=== PATIENT | male | born 1985 | race Caucasian/White ===

== ENCOUNTER 2019-02-14 07:17 | Emergency (ER) | payer BC, SELFPAY ==
[2019-02-14 07:19] VITALS: BP 128/78; PULSE 75; RESP 17; TEMP 36.8; O2SAT 98; BMI 39.2
--- NOTE | 2019-02-14 07:33 | ED.VIS.GEN ---
History of Present Illness Chief Complaint: Abscess Informant: Patient Onset: Days - 5-6 Context: Gradual Onset Timing: Waxes and wanes Quality: sore Location: right groin, more in prox medial thigh Current Severity: Moderate Maximum Severity: Moderate Worsened by: palpation Relieved by: leaving alone Associated Symptoms: bloody d/c when poke it; no fevers/systemic sx Narrative: No known history of MRSA. No recent hospitalization or surgery. No recent injury or foreign body here, patient thinks it started as an ingrown hair in his groin. States last night his poked it with something sharp, it was very painful and he only had a little blood come out, no purulent material. Prior similar symptoms: No Recent Illness/Hospitalization: No Past Medical History - Allergies and Home Meds Allergies/Adverse Reactions: Allergies No Known Allergies Allergy (Verified 02/14/19 07:19) Primary Care Physician: Margo Balderrama MD [Primary Care Provider] - Past Medical History: None Lives: Spouse/ Significant Other Smoking Status: Never smoker Drugs: None Review of Systems General: Denies: Chills, Fever, Sweats Musculoskeletal: Reports: Extremity Pain - right thigh. Denies: Swelling Skin: Reports: Abscess. Denies: Rash Neurological: Denies: Weakness, Numbness Physical Exam Vital Signs/Narrative: Vital Signs Temp Pulse Resp BP Pulse Ox 02/14/19 07:19 98.3 F 75 17 128/78 H 98 Inital Vital Signs reviewed: Yes General: Well nourished, Well developed, No Acute Distress Head: Normocephalic, Atraumatic Skin: - - Small 1 cm abscess w/ ecchymosis, very tender, nothing easily expressible, right proximal medial thigh, does not involve inguinal area or scrotum. Although there is faint erythema in his right medial thigh, it is not indurated and not obvious that it represents cellulitis. Neurological: Alert, Oriented x3, Cranial nerves II-XII grossly intact, Normal Strength, Normal Sensation, Normal Gait Psychological: Normal affect, Normal Mood Diagnostic/Tx/Re-eval - Medical Decision Making Simple abscess was not large enough to pack. It was incised and drained and he will be placed on Bactrim to treat any residual infection. Follow-up as needed or return if worse. Procedures Procedure(s): Simple cutaneous abscess incision and drainage. Locally anesthetized with 4 cc plain 1% lidocaine with isopropanol prep, followed by chlorhexidine prep and incision at the center of abscess with #11 blade. Small amount of purulent material was expressed along with some blood. The small abscess collapsed. It was probed and deloculated, irrigated with 30 cc of saline under pressure, and dressed with bacitracin. Tolerated well, no complications. ED Disposition - Plan for ED Patient: Disposition: Home or Assisted Living Diagnosis: Cutaneous abscess of right lower extremity Instructions: ABSCESS, Incision and Drainage Prescriptions: Sulfamethoxazole/Trimethoprim [Bactrim Ds Tablet] 1 ea PO BID #14 tab Prescription Printed Referrals: Margo Balderrama MD [Primary Care Provider] - 1 Week if not improving
== END 2019-02-14 08:13 | disposition home or self-care (01) ==
PROVIDERS: Emergency Provider Emergency Medicine; Family Provider Family Medicine; PCP Family Medicine
DX: L02.415 Cutaneous abscess of right lower limb (principal)
CPT/HCPCS: 10060; 99282

== ENCOUNTER → 2019-04-25 17:27 | Outpatient (CLI) | payer BC, SELFPAY ==
[2019-04-25 17:48] LABS: Cholesterol 271 mg/dL (200); Glucose 81 mg/dL (74-106); High Density Lipoprotein 82 mg/dL; Triglycerides 98 mg/dL; Very Low Density Lipoprotein 20 mg/dL (5-40)
== END ==
PROVIDERS: PCP Family Medicine; Referring Provider Family Medicine; Visit Provider Family Medicine
DX: Z00.00 Encounter for general adult medical examination without abnormal findings (principal)
CPT/HCPCS: 36415; 80061; 82947

== ENCOUNTER 2021-06-12 07:53 | Outpatient (RCR) | payer BC, SELFPAY | END 2021-06-20 23:59 | LOC: NS 07:53 | PROVIDERS: PCP Family Medicine; Referring Provider Family Medicine; Visit Provider Family Medicine | DX: Z71.3 Dietary counseling and surveillance (principal); E66.01 Morbid (severe) obesity due to excess calories; Z68.41 Body mass index [BMI] 40.0-44.9, adult | CPT/HCPCS: 97802 ==

== ENCOUNTER 2021-07-01 16:11 | Outpatient (RCR) | payer BC, SELFPAY | END 2021-07-20 23:59 | LOC: NS 16:11 | PROVIDERS: PCP Family Medicine; Referring Provider Family Medicine; Visit Provider Family Medicine | DX: Z71.3 Dietary counseling and surveillance (principal); E66.01 Morbid (severe) obesity due to excess calories; Z68.41 Body mass index [BMI] 40.0-44.9, adult | CPT/HCPCS: 97803 ==

== ENCOUNTER 2021-07-22 16:21 | Outpatient (RCR) | payer BC, SELFPAY | END 2021-08-20 23:59 | LOC: NS 16:21 | PROVIDERS: PCP Family Medicine; Referring Provider Family Medicine; Visit Provider Family Medicine | DX: Z71.3 Dietary counseling and surveillance (principal); E66.01 Morbid (severe) obesity due to excess calories; Z68.41 Body mass index [BMI] 40.0-44.9, adult | CPT/HCPCS: 97803 ==

== ENCOUNTER 2021-09-16 17:52 | Emergency (ER) | payer BC, SELFPAY ==
[2021-09-16 17:54] VITALS: BP 123/99; PULSE 99; RESP 18; TEMP 36.7; O2SAT 96; BMI 36.9
[2021-09-16 18:16] VITALS: RESP 18
--- NOTE | 2021-09-16 18:46 | EX.ED.SAOD ---
HPI History of Present Illness Chief Complaint: Substance Abuse Informant: patient and family Narrative Narrative: Patient is brought in by sister. They are concerned with his drinking. He has been drinking the last 2 days. He drank a bottle of vodka today. He has no physical complaints. Not suicidal homicidal. He admits to some drinking problems. He has never gone through detox. However, this patient will go days at a time or even longer without drinking. He states he has never had withdrawal symptoms when he stops. His sister agrees with that. The concern is that when he gets stressed he will drink heavily. They just did not know what to do with this. PFSH PFS Home Medications buspirone 10 mg tablet 2 tab PO BID 09/16/21 [History Last Taken Unknown] Allergy/AdvReac Type Severity Reaction Status Date / Time No Known Allergies Allergy Verified 09/16/21 17:57 Social History Smoking Status: Never smoker ROS ROS ED Constitutional Constitutional ED: Denies chills, fever(s) or weight loss Eyes Eyes: Denies change in vision ENT ENT ED: Denies sore throat Cardiovascular Cardiovascular: Denies chest pain or palpitations Respiratory/Chest Respiratory/Chest: Denies cough or dyspnea Gastrointestinal Gastrointestinal: Denies abdominal pain, melena, nausea or vomiting Musculoskeletal Musculoskeletal: Denies arthralgias or myalgias Integumentary Denies rash Neurologic Neurologic: Denies headache(s) Psychiatric Psychiatric: Denies suicidal ideation or suicidal thoughts Endocrine Endocrinology: Denies polydipsia or polyuria Hematologic/Lymphatic Hematologic/Lymphatic: Denies easy bleeding or easy bruising Allergic/Immunologic Allergic/Immunologic ED: Denies urticaria EXAM Physical Exam Const Vital Signs: 09/16/21 17:54 09/16/21 18:16 Temperature 98.1 F Temperature Source Temporal Pulse Rate 99 Respiratory Rate 18 18 Blood Pressure 123/99 H Blood Pressure Mean 107 Pulse Ox 96 Oxygen Delivery Method Room Air Positive well nourished, well developed and obese; Negative for unkempt General Appearance ED: well developed and NAD; Negative for unkempt Nutritional Appearance: obese HEENT Reports moist mucous membranes atraumatic; Negative for trauma Eyes General Eye ED: Negative for pale conjunctiva or scleral icterus Neck no JVD Chest Wall inspection of chest normal Resp normal respiratory effort and clear to auscultation bilaterally Cardio regular rate, regular rhythm and no murmurs GI soft to palpation, non-tender, non-distended and no masses Palpation: Negative for tender or guarding Back/Spine no CVA tenderness Extremity General Extremety ED: Negative for edema or tenderness General Extremity: Negative for edema Neuro oriented x3 Psych mental status grossly normal and thought process normal Appearance: Negative for unkempt Attitude: No belligerent, No agitated, No aggressive and No hostile Mood & Affect: Negative for depressed, anxious or tearful Skin General Skin Exam: Negative for jaundice MDM MDM MDM Narrative Medical decision making narrative: Patient is intoxicated but he is awake alert. Both he and his sister agree he has no withdrawal symptoms when he does not drink. I do not think he needs admission. His sister has called [facility] while here. They have an appointment to see them tomorrow for outpatient treatment. I think this is very important. Patient does agree and would want to do this. We will get him home at this time. Discharge Plan Triage Chief Complaint: Substance Abuse ED Provider: Hebert Serrano Dx/Rx/DC Orders Clinical Impression: Alcohol abuse Instructions: ED Alcohol Abuse Prescriptions: No Action buspirone 10 mg tablet 2 tab PO BID Label Comments: TAKE 2 TABLETS BY MOUTH TWICE DAILY Primary Care Provider: Margo Balderrama Referrals: Margo Balderrama MD [Primary Care Provider] - As soon as possible Activity Restrictions/Additional Instructions: Follow-up with [facility] as scheduled tomorrow. Disposition Disposition: Home, Self Care
[2021-09-16 18:57] VITALS: RESP 18
== END 2021-09-16 18:59 | disposition home or self-care (01) ==
PROVIDERS: Emergency Provider Emergency Medicine; PCP Family Medicine; Visit Provider Emergency Medicine
DX: F10.129 Alcohol abuse with intoxication, unspecified (principal); E66.9 Obesity, unspecified; Z79.899 Other long term (current) drug therapy
CPT/HCPCS: 99282

== ENCOUNTER → 2023-06-29 | Outpatient (CLI) | payer BC, SELFPAY ==
--- NOTE | 2023-06-29 10:32 | RAD_ITS ---
EXAM: XR LEFT KNEE COMPLETE, 4 OR MORE VIEWS CLINICAL INDICATION: PAIN TECHNIQUE: Four or more views of the left knee. COMPARISON: No relevant prior studies available. FINDINGS: BONES/JOINTS: Mild narrowing of the medial joint compartment. Small flabella posterior to the knee. No visible joint effusion. No acute fracture. No subluxation. Normal alignment. No sclerotic or destructive changes observed. SOFT TISSUES: Unremarkable. No soft tissue swelling or gas. No radiopaque foreign body. RAD/Knee 4 or More Views IMPRESSION: Minimal degenerative changes. Electronically Signed: Isidra Valdes MD at 7:51 EDT ,
== END | disposition home or self-care (01) ==
PROVIDERS: PCP Nurse Practitioner Family; Referring Provider Family Medicine; Visit Provider Family Medicine
DX: M25.562 Pain in left knee (principal)
CPT/HCPCS: 73564

== ENCOUNTER 2023-08-20 08:10 | Day surgery (SDC) | payer BC, SELFPAY ==
[2023-08-20] VITALS (8 sets, daily range): BP systolic 107–134; BP diastolic 70–93; PULSE 59–89; RESP 16–18; TEMP 36.4–36.8; O2SAT 96–100; BMI 37.4
[2023-08-20] MEDS: Lactated Ringers 1,000 ML 15 ML IV (08:44)
[2023-08-20] MEDS: Cefazolin 2 GM in 0.9% Normal Saline (100mL Bag) 100 ML IV (10:28)
[2023-08-20] MEDS: Epinephrine (1 mg/ml) 1 MG/ML VIAL (10:49)
[2023-08-20] MEDS: Bupiv/Epi 0.25% 30 ML Vial (11:00)
[2023-08-20] MEDS: Ketorolac 30 MG/ML Syringe IV (11:30)
[2023-08-20] MEDS: Oxycodone/Apap 5/325 Tablet PO (13:03)
--- NOTE | 2023-08-20 13:29 | PCM.OPRPT ---
Report of Operation Date of Procedure: 08/20/23 Description of Surgical Findings:: Preoperative diagnosis: Left knee medial meniscus tear Postoperative diagnosis: Left knee medial meniscus tear Procedure: Left knee arthroscopic partial medial meniscectomy Surgeon: Geovanny Gagnon DO Anesthesia: General LMA Anesthesiologist: Dr. Dietrich Estimated blood loss: 2 cc IV fluids: Per anesthesia record Urine output: None recorded Specimen: None Implants: None Packing/drains: None Complications: None apparent Preoperative indications: This is an 38-year-old male who presented to our office with left knee pain. He had pain and mechanical symptoms. MRI demonstrated a complex posterior horn medial meniscus tear. He failed nonoperative treatment in form of NSAIDs, activity modification, exercise. Operative invention in the form of left knee partial medial meniscectomy. The risks and benefits, alternatives to procedure reviewed with patient at length and he agreed to proceed. Risks included but were not limited to bleeding, infection, loss of life or limb, need for additional surgery, persistent pain, posttraumatic arthritis, neurovascular injury, stiffness, DVT or PE, risk of anesthesia. Informed consent obtained. Description of procedure: Patient identified preoperative holding her by name, correct number, and date of . The operative extremity was marked. All questions were answered to the patient's satisfaction. At time of his procedure, patient brought the operative suite positioned supine on standard operating table. All bony prominences well-padded. General anesthesia was administered and LMA was placed. A well-padded pneumatic tourniquet was applied to the operative upper thigh. An arthroscopic post was placed along the lateral aspect of the operative thigh. We prepped and draped the left lower extremity in normal, sterile peak fashion. We performed timeout with all parties in attendance in agreement with the side, site, operation be performed. 2 g Ancef was administered by anesthesia staff prior to tourniquet ablation. I then exsanguinated left lower extremity with Esmarch bandage. Tourniquet was inflated to 250 mmHg for approximately 15 minutes. Esmarch was removed. Standard anterolateral portal was then established 90 degrees of flexion. Blunt tipped trocar was used to enter the knee joint. Knee was filled with normal saline with epinephrine. Arthroscope was then introduced. Diagnostic arthroscopy of the patellofemoral joint demonstrated pristine cartilage, hypertrophic fat pad. Medial lateral gutter was unremarkable. Valgus stress was applied the knee to enter the medial compartment with the knee in extension. Anterior medial portal was established under direct visualization. Medial compartment was then examined. Cartilage demonstrated grade 2 changes with stable chondral margins in the medial femoral condyle. Complex tear was noted the posterior horn the medial meniscus. Partial medial meniscectomy was performed with combination of baskets and shaver to a stable rim. Approximately 50% of the inner portion of the posterior horn to posterior body was resected. I then continued examination of the knee. Intercondylar notch was pristine with normal ACL and PCL. Lateral compartment was then entered. Varus stress was applied. Lateral compartment was pristine. The knee was thoroughly lavaged after debridement of the fat pad with the arthroscopic shaver. The knee was anesthetized with 30 cc total quarter percent bupivacaine with epinephrine. Portal sites were closed in interrupted [id number] fashion with 3-0 nylon suture. Bulky sterile compression system was applied. Tourniquet is deflated. Patient was safely awoken the operative suite and extubated. He was transferred to his gurney and subsequent to PACU in stable condition. Postoperative plan: Weightbearing, range of motion as tolerated operative knee Follow-up in 2 weeks for suture removal Physical therapy to start at 2 weeks Multimodal pain management with opioid, NSAID and Tylenol Aspirin 81 mg for DVT prophylaxis x 2 weeks Ice and elevation.
== END 2023-08-20 14:29 | disposition home or self-care (01) ==
LOC: SDC 08:11 → AC 08:12
PROVIDERS: PCP Nurse Practitioner Family; Referring Provider Student in an Organized Health Care Education/Training Program; Visit Provider Student in an Organized Health Care Education/Training Program
PROC: (CPT 29870; principal; 2023-08-20 09:50)
DX: S83.232A Complex tear of medial meniscus, current injury, left knee, initial encounter (principal); Z68.41 Body mass index [BMI] 40.0-44.9, adult; E66.9 Obesity, unspecified; M25.462 Effusion, left knee; F41.9 Anxiety disorder, unspecified; Z79.899 Other long term (current) drug therapy; Z87.891 Personal history of nicotine dependence; W19.XXXA Unspecified fall, initial encounter
CPT/HCPCS: 29881; J2405

== ENCOUNTER → 2024-01-29 | Outpatient (CLI) | payer BC, SELFPAY | END | disposition home or self-care (01) | LOC: SL 19:59 | PROVIDERS: PCP Nurse Practitioner Family; Visit Provider Nurse Practitioner Family | DX: G47.30 Sleep apnea, unspecified (principal) | CPT/HCPCS: 95810 ==

== ENCOUNTER → 2024-02-26 | Outpatient (CLI) | payer BC, SELFPAY | END | disposition home or self-care (01) | LOC: SL 11:55 | PROVIDERS: PCP Nurse Practitioner Family; Visit Provider Nurse Practitioner Family | DX: Z00.00 Encounter for general adult medical examination without abnormal findings (principal) ==

== ENCOUNTER 2024-09-20 07:20 | Emergency (ER) | payer BC, SELFPAY ==
[2024-09-20 07:21] VITALS: BP 118/85; PULSE 77; RESP 14; TEMP 36.2; O2SAT 97; BMI 41.1
--- NOTE | 2024-09-20 08:08 | ED.VIS.LOWEX ---
HPI History of Present Illness HPI Narrative: 39-year-old male history of prior meniscal tear and arthroscopic knee surgery a year ago by Dr. Gagnon. Patient states he was moving over the weekend to a lot of carrying things going up and down steps. He has developed atraumatic left knee pain and swelling. No fever. No redness. Chief Complaint: Lower Extremity Injury Informant: patient Occured/Mechanism Mechanism/Context: No injury and No blunt trauma Onset/Context/Timing Onset: Today Context: Gradual Onset Timing: Continuous Quality of Pain: Dull and Aching Current Severity: Moderate Maximum Severity: Moderate Associated Symptoms Associated Symptoms: Negative for Parasthesia, Weakness or Loss of Funtion Narrative Narrative: 39-year-old male prior left knee surgery for meniscal tear a year ago. Was doing a lot of moving going up and down steps and carrying things over the weekend he has left knee pain and swelling for 1 to 2 days. Denies any fall injury or trauma. No fever or chills. Prior similar symptoms: No Recent Illness/Hospitalization: No PFSH PFSH Medical History Anxiety History of ulceration History of diverticulitis Non-smoker History of pain when walking Home Medications ?Medication ?Instructions ?Recorded ?Last Taken ?Type buspirone 10 mg tablet 2 tab PO BID 09/16/21 08/20/23 History meloxicam 15 mg tablet 15 mg PO DAILY 08/12/23 Unknown History omeprazole 20 mg capsule,delayed 20 mg PO DAILY 08/12/23 Unknown History release ketorolac 10 mg tablet 10 mg PO Q6H 3 days #12 tabs 08/20/23 Unknown Rx oxycodone 5 mg tablet 5 mg PO Q6H PRN pain 5 days #20 08/20/23 Unknown Rx tabs hydrocodone-acetaminophen 5-325mg 1 tab PO Q6H PRN pain 5 days #14 09/20/24 Unknown Rx 5mg-325mg tabs Allergy/AdvReac Type Severity Reaction Status Date / Time No Known Allergies Allergy Verified 09/20/24 07:26 Surgical History Hx of inguinal hernia surgery Social History Smoking Status: Former smoker ROS ROS ED ROS Narrative Left knee pain mild swelling. No fever or chills. No redness. Constitutional Constitutional ED: Denies chills or fever(s) Eyes Eyes: Denies blurry vision ENT ENT ED: Denies ear pain Cardiovascular Cardiovascular: Denies chest pain Respiratory/Chest Respiratory/Chest: Denies cough or dyspnea Gastrointestinal Gastrointestinal: Denies abdominal pain Genitourinary Genitourinary ED: Denies dysuria or hematuria Musculoskeletal Musculoskeletal: Denies arthralgias, back pain or myalgias Integumentary Denies abscess or Abrasions Neurologic Neurologic: Denies headache(s) Psychiatric Psychiatric: Denies anxiety Endocrine Endocrinology: Denies polydipsia Hematologic/Lymphatic Hematologic/Lymphatic: Denies easy bleeding Allergic/Immunologic Allergic/Immunologic ED: Denies mouth swelling, tongue swelling or urticaria EXAM Physical Exam Narrative Exam Narrative: 39-year-old male sitting upright in bed. No acute distress. Vital signs stable. Afebrile. Temperature 97.1. H EENT exam pupils round reactive light. Extra motions are intact. Neck nontender. No JVD. Lungs clear to auscultation bilaterally. Heart regular rhythm rate about 80 no murmur. Chest wall and ribs nontender. Abdomen soft nontender. Patient is moving all 4 extremities. Left knee mild swelling and effusion. No cellulitis. He does have flexion extension of his knee mild discomfort but not like a septic joint. Hip nontender. Calf nontender no edema no cords. Ankle foot nontender. Normal DP pulse. Normal dorsi plantarflexion. Normal strength and sensation. Knee exam is consistent with a knee effusion consistent with his prior history of a meniscal tear and surgery. Consistent with his history of recent moving and walking a lot on it. I do not think this is a septic joint. Neurologically he is awake and alert. Answering questions and following commands. Const Vital Signs: 09/20/24 07:21 Temperature 97.1 F L Temperature Source Temporal Pulse Rate 77 Respiratory Rate 14 Blood Pressure 118/85 H Blood Pressure Mean 96 Pulse Ox 97 Oxygen Delivery Method Room Air Positive well nourished and well developed; Negative for cachectic, contractures or unkempt General Appearance ED: well developed and NAD; Negative for unkempt, cachectic or contractures Nutritional Appearance: Negative for cachectic HEENT Reports moist mucous membranes normocephalic and atraumatic; Negative for trauma or tenderness Eyes PERRL Neck full ROM and supple Chest Wall inspection of chest normal and palpation of chest normal Resp normal respiratory effort, no retractions and clear to auscultation bilaterally Cardio regular rate, regular rhythm, S1 normal heart sound, S2 normal heart sound and no murmurs GI non-tender, non-distended and no masses Auscultation: normoactive bowel sounds Palpation: soft; Negative for tender, guarding or rebound tenderness present Back/Spine no CVA tenderness General Back: Negative for CVA tenderness Cervical Spine: Negative for cervical spine tenderness Thoracic Spine / Upper Back: Negative for thoracic spinal tenderness Lumbar Spine / Lower Back: Negative for lumbar spinal tenderness Extremity full ROM; Negative for normal to inspection Extremity Narrative: Left knee mild swelling. Small effusion. Full extension intact. ACL, PCL, MCL and LCL intact. Quadriceps patellar tendon intact. Can lift the leg off the bed. Full extension intact 280 degrees. No signs of septic joint. No redness. No warmth. Good range of motion.Exam consistent with knee effusion. General Extremety ED: Negative for cyanosis or edema General Extremity: Negative for cyanosis or edema Neuro oriented x3 and CN's II-XII intact bilaterally Sensorium / Orientation: alert, oriented to person, oriented to place and oriented to time; Negative for orientation impaired, confused or lethargic Motor Exam: strength 5/5 throughout Psych mental status grossly normal Appearance: Negative for unkempt Speech: No other Mood & Affect: Negative for anxious Skin no wounds Lesions: no lesions Rashes: no rashes Trauma: Negative for abrasion or laceration MDM MDM MDM Narrative Medical decision making narrative: 39-year-old male left knee effusion history of prior meniscal tear and surgery a year ago. He has been doing a lot of moving. Currently there is no cellulitis. I do not think this is a septic joint. We discussed treatment options. Will go conservatively with ice anti-inflammatories elevation and rest and ibuprofen for pain. [place] for more severe pain. He knows to return if he develops a fever or cellulitis. He will follow-up with his orthopedic physician next week if not improving they can discuss joint injection with steroid and lidocaine and/or drainage of the knee. Patient is comfortable with the plan. I did write him a prescription for [place]. He was given 1 here. History & Record Review Additional record(s) reviewed:: Prior inpatient record, Prior outpatient record, Prior ED visit and Prior labs Discharge Plan Triage Chief Complaint: Lower Extremity Injury ED Provider: Mathew Kaba Dx/Rx/DC Orders Clinical Impression: Acute knee pain, Effusion of knee joint, left, History of meniscal tear Instructions: ED Knee Effusion Prescriptions: New hydrocodone-acetaminophen 5-325 mg tablet 1 tab PO Q6H PRN (Reason: pain) 5 Days Qty: 14 0RF No Action buspirone 10 mg tablet 2 tab PO BID Patient Comments: TAKE 2 TABLETS BY MOUTH TWICE DAILY meloxicam 15 mg tablet 15 mg PO DAILY omeprazole 20 mg capsule,delayed release(DR/EC) 20 mg PO DAILY ketorolac 10 mg tablet 10 mg PO Q6H 3 Days Qty: 12 0RF Rx Instructions: maximum total duration of 5 days from all oral, intranasal, or parenteral formulations Hold other NSAIDs while taking ketorolac oxycodone 5 mg tablet 5 mg PO Q6H PRN (Reason: pain) 5 Days Qty: 20 0RF Primary Care Provider: Rosalva Couch Referrals: Geovanny Gagnon DO [Med Staff - Active Staff] - As soon as possible Rosalva Couch, IGNITION EXPERT-C [Primary Care Provider] - Activity Restrictions/Additional Instructions: Ice and elevate your knee to decrease pain and swelling. Ice it is much as possible. Ibuprofen 600 mg 3-4 times a day. Tylenol in between as needed for pain. [place] for more severe pain. Call and follow-up with Dr. Gagnon next week. If the pain and swelling is not improving he and you can discuss injecting your knee with steroids and lidocaine. Also draining it. If you develop a fever or severe redness around the knee or the pain just getting worse or not improving return because it could be an infection. At this time there is no signs of infection it looks like you just have fluid on your knee from your prior knee injury and meniscal injury. Print Language: Luxembourgish Disposition Disposition: Home, Self Care
[2024-09-20] MEDS: HYDROcodone Bitartrate/Apap 5/325 Tablet PO (08:15)
[2024-09-20 08:17] VITALS: BP 134/78; PULSE 64; RESP 18; TEMP 37.1; O2SAT 99
== END 2024-09-20 08:17 | disposition home or self-care (01) ==
LOC: ED 08:14
PROVIDERS: Emergency Provider Emergency Medicine; PCP Nurse Practitioner Family; Visit Provider Emergency Medicine
DX: M25.562 Pain in left knee (principal); M25.462 Effusion, left knee; X58.XXXA Exposure to other specified factors, initial encounter; Y93.E6 Activity, residential relocation; Z79.899 Other long term (current) drug therapy; Z87.891 Personal history of nicotine dependence
CPT/HCPCS: 99282

== ENCOUNTER → 2024-10-21 | Outpatient (CLI) | payer BC, SELFPAY | END | disposition home or self-care (01) | LOC: SL 12:31 | PROVIDERS: PCP Nurse Practitioner Family; Visit Provider Nurse Practitioner Family | DX: Z00.00 Encounter for general adult medical examination without abnormal findings (principal) ==